=== PATIENT | male | born 1955 | race Two or more races ===

== ENCOUNTER → 2018-08-17 | Outpatient (CLI) | payer OTHER | END | disposition home or self-care (01) | LOC: SONOGRAMA 07:49 | DX: R10.84 Generalized abdominal pain (principal); R10.2 Pelvic and perineal pain ==

== ENCOUNTER → 2019-05-27 | Outpatient (CLI) | payer OTHER | END | disposition home or self-care (01) | LOC: SONOGRAMA 08:35 | DX: N36.8 Other specified disorders of urethra (principal) ==

== ENCOUNTER → 2019-11-11 | Outpatient (CLI) | payer OTHER | END | disposition home or self-care (01) | LOC: SONOGRAMA 11:02 | PROVIDERS: ATTEND Internal Medicine Endocrinology, Diabetes & Metabolism | DX: R10.84 Generalized abdominal pain (principal) ==

== ENCOUNTER → 2020-08-17 | Outpatient (CLI) | payer OTHER | END | disposition home or self-care (01) | LOC: SONOGRAMA 07:10 → MAMO-SONO 07:15 | PROVIDERS: ATTEND Internal Medicine | DX: N18.2 Chronic kidney disease, stage 2 (mild) (principal); N28.89 Other specified disorders of kidney and ureter; K76.0 Fatty (change of) liver, not elsewhere classified ==

== ENCOUNTER 2021-07-26 06:48 | Outpatient (CLI) | payer OTHER | END 2021-07-26 12:12 | disposition home or self-care (01) | LOC: SONOGRAMA 06:48 | PROVIDERS: ATTEND Internal Medicine Endocrinology, Diabetes & Metabolism | DX: E04.9 Nontoxic goiter, unspecified (principal) ==

== ENCOUNTER 2021-08-14 06:21 | Outpatient (CLI) | payer OTHER | END 2021-08-14 07:00 | disposition home or self-care (01) | LOC: SONOGRAMA 06:21 | PROVIDERS: ATTEND Internal Medicine | DX: K76.0 Fatty (change of) liver, not elsewhere classified (principal) ==

== ENCOUNTER 2025-04-20 06:44 | Outpatient (CLI) | payer OTHER | END 2025-04-21 13:50 | disposition home or self-care (01) | LOC: SONOGRAMA 06:44 | PROVIDERS: ATTEND Internal Medicine Endocrinology, Diabetes & Metabolism | DX: K76.0 Fatty (change of) liver, not elsewhere classified (principal); J06.9 Acute upper respiratory infection, unspecified; R00.2 Palpitations; J45.909 Unspecified asthma, uncomplicated ==

== ENCOUNTER 2025-04-21 07:19 | Outpatient (CLI) | payer OTHER | END 2025-04-21 07:27 | disposition home or self-care (01) | LOC: TOM 07:19 | PROVIDERS: ATTEND Internal Medicine | DX: E27.9 Disorder of adrenal gland, unspecified (principal); D44.11 Neoplasm of uncertain behavior of right adrenal gland | CPT/HCPCS: 74177; Q9965 ==